=== PATIENT | male | born 1990 | race Caucasian/White ===

== ENCOUNTER 2023-06-04 03:15 | Emergency (ER) | payer OTHER ==
[~2023-06-04] VITALS: Ht 177.8 cm; Wt 90.9 kg
[2023-06-04] MEDS ORDERED: LR 1,000 ML IV ONE (03:30)
[2023-06-04] MEDS ORDERED: Acetaminophen 500 MG TAB PO ONE (03:30)
[2023-06-04] MEDS ORDERED: dexAMETHasone 4 MG TAB PO ONE (03:30)
[2023-06-04 03:33] VITALS: BP 139/92; PULSE 78; TEMP 98.7
[2023-06-04 04:00] LABS: BASO # 0.1 K/mm3 (0.0-0.2); BASO % 0.5 % (0.0-2.0); EOS # 0.2 K/mm3 (0.0-0.7); EOS % 1.8 % (0.0-4.0); GRAN # 4.6 K/mm3 (1.4-6.5); GRAN % 46.8 % (42.2-75.2); HEMOGLOBIN 14.8 g/dl (13.5-18.0); LYMPH # 4.3 K/mm3 (1.2-3.4); LYMPH % 43.1 % (20.0-51.0); MEAN CELL VOLUME 85 fl (80.0-100.0); MEAN CORPUSCULAR HEMOGLOBIN 29 pg (27-31); MEAN CORPUSCULAR HGB CONC 34 g/dl (33.0-37.0); MEAN PLATELET VOLUME 9.7 fl (7.4-10.4); MONO # 0.8 K/mm3 (0.1-0.6); MONO % 7.6 % (1.7-9.3); PLATELET COUNT 309 K/mm3 (130-400); RED BLOOD COUNT 5.06 M/mm3 (4.20-5.60); REDCELL DISTRIBUTION WIDTH-CV 11.9 % (11.5-14.5)
[2023-06-04 04:18] LABS: ALANINE AMINOTRANSFERASE 41 U/L (0-55); ALBUMIN 4.6 gm/dL (3.5-5.0); ALKALINE PHOSPHATASE 57 U/L (40-150); ANION GAP 12 mmol/L (7-16); AST,SGOT 28 U/L (5-34); BILIRUBIN,TOTAL 0.6 mg/dL (0.2-1.2); BLOOD UREA NITROGEN 13 mg/dL (9-21); CARBON DIOXIDE 24 mmol/L (22-29); CHLORIDE 102 mmol/L (98-107); CREATININE, serum 0.99 mg/dL (0.72-1.25); GLUCOSE 89 mg/dL (70-99); MAGNESIUM 2.1 mg/dL (1.6-2.6); PHOSPHOROUS 4.2 mg/dL (2.3-4.7); POTASSIUM 3.7 mmol/L (3.5-4.5); SODIUM 138 mmol/L (136-145); TOTAL PROTEIN 8.1 gm/dL (6.2-8.1)
[2023-06-04] MEDS ORDERED: Iohexol 300 - 100 ML VIAL IV ONE (04:33)
[2023-06-04] MEDS ORDERED: NS 74 ML IV ONE (04:34)
[2023-06-04 04:38] LABS: TSH w REFLEX 3.733 uIU/mL (0.350-4.940)
[2023-06-04 04:40] LABS: TROPONIN-I < 0.010 ng/mL (0.00-0.033)
[2023-06-04] MEDS ORDERED: Magnesium Sulfate 4% 50 ML IV ONE (05:00)
[2023-06-04] MEDS ORDERED: Ondansetron 4 MG/2 ML VIAL IV ONE (05:00)
== END 2023-06-04 05:51 | disposition home or self-care (01) ==
LOC: COL.ER 03:15
PROVIDERS: Emergency Medicine
DX: R51.9 Headache, unspecified (principal); R11.0 Nausea; R42 Dizziness and giddiness; I49.3 Ventricular premature depolarization
CPT/HCPCS: J0780; J2405; J3475; J7120; J8540; Q9967